=== PATIENT | male | born 1965 | race Caucasian/White ===

== ENCOUNTER 2016-07-29 21:01 | Emergency (ER) | payer OTHER ==
[~2016-07-29] VITALS: Ht 188 cm; Wt 104.3 kg
[~2016-07-29 21:01] MED LIST: CIPR500T PO; OXYC-323 PO
[2016-07-29 21:40] VITALS: BP 134/84
[2016-07-29] MEDS ORDERED: CYCL10TA2 PO (22:47)
[2016-07-29] MEDS ORDERED: NAPR500T8 PO (22:47)
[2016-07-29] MEDS ORDERED: HYDR-971 PO (22:47)
--- NOTE | 2016-07-29 22:47 | PHYS DOC ---
Past Medical History Past Medical History: No Pertinent History Past Surgical History: Other Additional Past Surgical Histo: Left ear, left wrist Alcohol Use: Occasionally Drug Use: None Adult General Chief Complaint Chief Complaint: SHOULDER INJURY HPI HPI Patient is a 51 year old male with no significant medical history who presents today with right shoulder and right anterior rib pain that began when he fell. Patient states he was walking down some steps from his truck when he fell. Patient denies any loss of consciousness. Review of Systems Review of Systems Constitutional: Denies fever or chills [] Eyes: Denies change in visual acuity, redness, or eye pain [] HENT: Denies nasal congestion or sore throat [] Respiratory: Right anterior rib pain Cardiovascular: No additional information not addressed in HPI [] GI: Denies abdominal pain, nausea, vomiting, bloody stools or diarrhea [] : Denies dysuria or hematuria [] Musculoskeletal: Right shoulder pain Integument: Denies rash or skin lesions [] Neurologic: Denies headache, focal weakness or sensory changes [] Endocrine: Denies polyuria or polydipsia [] Current Medications Current Medications Current Medications Medications (Trade) Dose Ordered Sig/Fly Start Time Stop Time Status Last Admin Dose Admin Acetaminophen/ Hydrocodone Bitart (Lortab 5/325) 2 tab 1X ONCE 07/29/16 23:00 07/29/16 23:01 Cyclobenzaprine HCl (Flexeril) 10 mg 1X ONCE 07/29/16 23:00 07/29/16 23:01 Allergies Allergies Allergies Coded Allergies Type Severity Reaction Last Updated Verified Penicillins Allergy Intermediate Hives 11/20/15 Yes Physical Exam Physical Exam Constitutional: Well developed, well nourished, no acute distress, non-toxic appearance. [] HENT: Normocephalic, atraumatic, bilateral external ears normal, oropharynx moist, no oral exudates, nose normal. [] Eyes: PERRLA, EOMI, conjunctiva normal, no discharge. [] Neck: Normal range of motion, no tenderness, supple, no stridor. [] Cardiovascular:Heart rate regular rhythm, no murmur [] Lungs & Thorax: No bruises noted on the ribs bilaterally. Tenderness on palpation of right anterior ribs mid axillary and midclavicular line approximately ribs 4 through 8. Bilateral breath sounds clear to auscultation, Abdomen: Bowel sounds normal, soft, no tenderness, no masses, no pulsatile masses. [] Skin: Warm, dry, no erythema, no rash. [] Back: No tenderness, no CVA tenderness. [] Extremities: Right shoulder with no obvious deformity. Tenderness on palpation of the right shoulder joint. Limited range of motion to the right shoulder especially abduction due to pain. Adequate plantar flexion and dorsiflexion of the right forearm. Adequate radial medial and ulnar sensation to the right forearm. +2 right radial pulse. Cap refill less than 2 seconds the right upper extremity. Neurologic: Alert and oriented X 3, normal motor function, normal sensory function, no focal deficits noted. [] Psychologic: Affect normal, judgement normal, mood normal. [] Current Patient Data Vital Signs Vital Signs Date Time Temp Pulse Resp B/P (MAP) Pulse Ox O2 Delivery O2 Flow Rate FiO2 07/29/16 21:40 98.1 95 16 95 Room Air 98.1 EKG EKG [] Radiology/Procedures Radiology/Procedures [] Course & Med Decision Making Course & Med Decision Making Pertinent Labs and Imaging studies reviewed. (See chart for details) Patient is in the ED with right shoulder pain after falling on it as well as right anterior rib pain. Right shoulder x-rays interpreted by Dr. Jha was negative for any acute findings. Right rib x-rays including PA chest interpreted by Dr. Jha were noted to have fractures of ribs 7 and 8. Patient be discharged with an IS for deep breaths. Provided pain medicines and muscle relaxers. Follow-up with primary care doctor next week. Dragon Disclaimer Dragon Disclaimer This electronic medical record was generated, in whole or in part, using a voice recognition dictation system. Departure Departure Impression: Primary Impression: Right rib fracture Additional Impressions: Fall down steps Contracture, right shoulder Disposition: HOME, SELF-CARE Condition: STABLE Referrals: HENRIQUE CHAMBERS MD (PCP) follow up with your doctor next week Patient Instructions: Contusion, [id number], Fall Prevention and Home Safety , Rib Fracture, [id number] Additional Instructions: You were seen in the ED after falling. You have fractures of ribs 7 and 8. We put you on pain medicine and muscle relaxers. We recommend you take deep breaths using the incentive spirometry 10 times every hour while awake. Consider establishing care with a primary care doctor and follow-up next week. Take the prescribed medicines as needed for pain. Come back to the ED at any time symptoms worsen. Scripts Naproxen (NAPROXEN) 500 Mg Tablet.dr 1 TAB PO BID, #60 TAB 2 Refills Prov: LORRIE LOPEZ APRN 07/29/16 Cyclobenzaprine Hcl (CYCLOBENZAPRINE HCL) 10 Mg Tablet 1 TAB PO TID, #60 TAB Prov: LORRIE LOPEZ APRN 07/29/16 Hydrocodone/Apap 5-325 (NORCO 5-325 TABLET) 1 Each Tablet 1-2 TAB PO Q4-6HRS, #40 TAB Prov: LORRIE LOPEZ APRN 07/29/16 Problem Qualifiers Primary Impression: Right rib fracture Encounter type: initial encounter Rib fracture type: multiple ribs Fracture type: closed Qualified Codes: S22.41XA - Multiple fractures of ribs , right side, initial encounter for closed fracture Additional Impressions: Fall down steps Encounter type: initial encounter Qualified Codes: W10.8XXA - Fall (on) ( from) other stairs and steps, initial encounter LORRIE LOPEZ APRN July 29, 2016 22:47
[2016-07-29] MEDS ORDERED: HYDROcodone/APAP 5/325MG 1 TAB TABLET PO ONE (23:00)
[2016-07-29] MEDS ORDERED: CYCLOBENZAPRINE 10 MG TABLET. PO ONE (23:00)
--- NOTE | 2016-07-30 08:07 | RAD ---
Examination: Frontal view of the chest and right RIBS History: History of fall, right rib pain Comparison: 03/14/2012 Findings: The cardiomediastinal silhouette grossly appears unremarkable. Minimal bibasal lung atelectasis. There is nondisplaced fracture of the right lateral eighth rib. There is minimal cortical irregularity identified in the right lateral sixth, seventh ribs seen best on the oblique view could be nondisplaced fractures. Impression: 1. Nondisplaced fracture of the right lateral eighth rib. Probable nondisplaced fractures of the right lateral sixth, seventh ribs.
--- NOTE | 2016-07-30 08:16 | RAD ---
Examination: 2 views of the right shoulder History: History of fall, pain Comparison: None available Findings: The acromioclavicular joint grossly appears unremarkable. The humeral head is within the glenoid. There is no acute fracture or dislocation identified. Impression: No acute osseous findings
== END 2016-07-29 23:03 | disposition home or self-care (01) ==
LOC: ER 21:01
DX: S22.31XA Fracture of one rib, right side, initial encounter for closed fracture (principal); M24.511 Contracture, right shoulder; Z88.0 Allergy status to penicillin; W10.9XXA Fall (on) (from) unspecified stairs and steps, initial encounter; Y93.89 Activity, other specified; Y99.8 Other external cause status; Y92.89 Other specified places as the place of occurrence of the external cause
CPT/HCPCS: 71101; 73030; 99284

== ENCOUNTER 2018-11-04 07:48 | Emergency (ER) | payer OTHER ==
[~2018-11-04] VITALS: Ht 188 cm; Wt 106.8 kg
[~2018-11-04 07:48] MED LIST changes: +CYCL10TA2 PO; +HYDR-3164 PO; +NAPR500T8 PO; -OXYC-323 PO; +OXYC1TAB15 PO
[2018-11-04 07:50] VITALS: BP 154/92
--- NOTE | 2018-11-04 08:33 | PHYS DOC ---
Past Medical History Past Medical History: No Pertinent History Past Surgical History: Other Additional Past Surgical Histo: Left ear, left wrist Alcohol Use: Heavy Additional Information: drinks 2-6 beers daily Drug Use: None Adult General Chief Complaint Chief Complaint: HAND PROBLEM [facility] Patient is a 53 year old right handed male who presents with complaining of left hand injury. Patient stated he tripped on a piece of metal and had a fall and landed on his left hyperextended hand 5 days ago and since then has had pain in his hand when pushing on his hand muscle. Patient rated his pain for over 5 states he doesn't think he has fracture but because he had metal placement in least wanted to make sure he doesn't have fracture. Review of Systems Review of Systems Constitutional: Denies fever or chills [] Eyes: Denies change in visual acuity, redness, or eye pain [] HENT: Denies nasal congestion or sore throat [] Respiratory: Denies cough or shortness of breath [] Cardiovascular: No additional information not addressed in HPI [] GI: Denies abdominal pain, nausea, vomiting, bloody stools or diarrhea [] : Denies dysuria or hematuria [] Musculoskeletal: Denies back pain, reports joint pain [] Integument: Denies rash or skin lesions [] Neurologic: Denies headache, focal weakness or sensory changes [] Endocrine: Denies polyuria or polydipsia [] All other systems were reviewed and found to be within normal limits, except as documented in this note. Allergies Allergies Allergies Coded Allergies Type Severity Reaction Last Updated Verified Penicillins Allergy Intermediate Hives 11/20/15 Yes Physical Exam Physical Exam Constitutional: Well developed, well nourished, mild distress, non-toxic appearance. [] HENT: Normocephalic, atraumatic. Eyes: PERRLA, EOMI, conjunctiva normal, no discharge. [] Neck: Normal range of motion, no tenderness, supple, no stridor. [] Cardiovascular:Heart rate regular rhythm, no murmur [] Lungs & Thorax: Bilateral breath sounds clear to auscultation [] Extremities: Left wrist and hand without deformity, mild edema and tenderness in muscle without bone tenderness, no neurovascular deficit , no cyanosis, no clubbing, ROM intact, no edema. [] Neurologic: Alert and oriented X 3, no focal deficits noted. [] Psychologic: Affect normal, judgement normal, mood normal. [] Current Patient Data Vital Signs Vital Signs Date Time Temp Pulse Resp B/P (MAP) Pulse Ox O2 Delivery O2 Flow Rate FiO2 11/04/18 07:50 98.0 79 16 154/92 (112) 98 Room Air 98.0 EKG EKG [] Radiology/Procedures Radiology/Procedures [] [address] [place] [address] IMAGING REPORT Signed PATIENT: JULIEN ROBERTO RACCOUNT: [id number] : 1965 LOCATION: ER AGE: 53 SEX: M EXAM STATUS: REG ER ORD. PHYSICIAN: MARAH ZIEGLER MD REASON: pt fell on LT hand, pain on lateral side and palm tenderness. PROCEDURE: HAND LEFT 3V Study: HAND LEFT 3V, WRIST 3V LEFT Indication: Fall onto the left hand. Comparison: 11/20/2015 Findings: Redemonstrated surgical changes of volar plate and screw fixation of the distal radius. The hardware is intact and without loosening. Unchanged persistent visualization of remote fracture clefts at the distal radius with sclerotic margins. Small avulsion fracture seen at the base of the fifth metacarpal. Additional small avulsion fracture along the ulnar aspect of the first metacarpal base. As only seen on the oblique view of the wrist, potential additional small avulsion fracture at the level of the distal carpal row. Remote fracture deformity of the thumb distal and proximal phalanges. Scattered degenerative changes throughout the hand and wrist. Soft tissue swelling at the wrist/proximal hand without retained radiopaque foreign body. Impression: 1. Small avulsion fractures seen at the bases of the first and fifth metacarpals. There may be an additional small avulsion fracture involving one of the carpal bones of the distal row (only seen on the oblique view of the wrist). 2. Intact distal radius ORIF construct with unchanged residual fracture deformity and persistent visualization of remote fracture clefts. Scattered degenerative changes as well as sequela of prior trauma involving the hand and wrist. Electronically signed by: LIO RIVAS MD (11/04/2018 8:34 AM) [facility] Course & Med Decision Making Course & Med Decision Making Pertinent Imaging studies reviewed. (See chart for details) Evaluation of patient in ER showed 53-year-old male patient with history of previous left wrist surgery and ORIF presented with injury to left wrist after a fall. Patient had unremarkable physical exam except for mild tenderness of proximal of metacarpal. X-ray showed an avulsion fraction of proximal of first a nd fifth metacarpal. Patient did not want to have splint and states he had Velcro splint at home. Patient was advised to follow-up with orthopedic physician [place] Disclaimer Madison Disclaimer This electronic medical record was generated, in whole or in part, using a voice recognition dictation system. Departure Departure Impression: Primary Impression: Closed avulsion fracture of shaft of metacarpal bone Disposition: HOME, SELF-CARE (at 0 [phone]) Condition: STABLE Referrals: NO PCP (PCP) MARIELA BRAVO II, MD Patient Instructions: Avulsion Fracture Additional Instructions: Apply ice on the affected area Follow-up with your primary care physician in 3-5 days Return to ER if not getting better Scripts Hydrocodone/Apap 5-325 (NORCO 5-325 TABLET) 1 Each Tablet 1 TAB PO PRN Q6HRS PRN for PAIN, #10 TAB 0 Refills Prov: MARAH ZIEGLER MD 11/04/18 Ibuprofen (IBUPROFEN) 800 Mg Tablet 800 MG PO PRN Q8HRS PRN for INFLAMMATION, #20 TAB Prov: MARAH ZIEGLER MD 11/04/18 Problem Qualifiers Primary Impression: Closed avulsion fracture of shaft of metacarpal bone Encounter type: initial encounter Qualified Codes: S62.329A - Displaced fracture of shaft of unspecified metacarpal bone, initial encounter for closed fracture MARAH ZIEGLER MD Nov 04, 2018 08:33
--- NOTE | 2018-11-04 08:37 | RAD ---
Study: HAND LEFT 3V, WRIST 3V LEFT Indication: Fall onto the left hand. Comparison: 11/20/2015 Findings: Redemonstrated surgical changes of volar plate and screw fixation of the distal radius. The hardware is intact and without loosening. Unchanged persistent visualization of remote fracture clefts at the distal radius with sclerotic margins. Small avulsion fracture seen at the base of the fifth metacarpal. Additional small avulsion fracture along the ulnar aspect of the first metacarpal base. As only seen on the oblique view of the wrist, potential additional small avulsion fracture at the level of the distal carpal row. Remote fracture deformity of the thumb distal and proximal phalanges. Scattered degenerative changes throughout the hand and wrist. Soft tissue swelling at the wrist/proximal hand without retained radiopaque foreign body. Impression: 1. Small avulsion fractures seen at the bases of the first and fifth metacarpals. There may be an additional small avulsion fracture involving one of the carpal bones of the distal row (only seen on the oblique view of the wrist). 2. Intact distal radius ORIF construct with unchanged residual fracture deformity and persistent visualization of remote fracture clefts. Scattered degenerative changes as well as sequela of prior trauma involving the hand and wrist. Electronically signed by: LIO RIVAS MD (11/04/2018 8:34 AM) [facility]
[2018-11-04] MEDS ORDERED: IBUP-1060 PO (08:49)
[2018-11-04] MEDS ORDERED: HYDR-3164 PO (08:49)
== END 2018-11-04 09:36 | disposition home or self-care (01) ==
LOC: ER 07:48
DX: S62.326A Displaced fracture of shaft of fifth metacarpal bone, right hand, initial encounter for closed fracture (principal); S62.241A Displaced fracture of shaft of first metacarpal bone, right hand, initial encounter for closed fracture; F10.20 Alcohol dependence, uncomplicated; Y90.9 Presence of alcohol in blood, level not specified; Z88.0 Allergy status to penicillin; W01.0XXA Fall on same level from slipping, tripping and stumbling without subsequent striking against object, initial encounter; Y93.89 Activity, other specified; Y92.89 Other specified places as the place of occurrence of the external cause; Y99.8 Other external cause status
CPT/HCPCS: 29125; 73110; 73130; 99284

== ENCOUNTER → 2020-11-26 | Outpatient (CLI) | payer OTHER ==
[~2020-11-26] MED LIST changes: -CIPR500T PO; +CIPR500T2 PO; +IBUP-1060 PO
--- NOTE | 2020-11-26 12:18 | KCIC ---
Study: MRI of the right hip without contrast INDICATION: Chronic right hip pain. COMPARISON: No prior MRI. Right hip radiographs 11/03/2020. TECHNIQUE: Multiplanar MR imaging of the right hip performed without the use of intravenous or intra- articular contrast. FINDINGS: Bones/hip: No acute fracture, avascular necrosis or stress reaction at the right hip. No acute osseou s abnormality at the left hip or elsewhere throughout the partially assessed pelvis. Note is made of advanced discogenic arthrosis at L5-S1 with surrounding endplate edema that is not fully characterize d. Small uybxi-xl-dyur imaging of the right hip reveals osteophytic proliferation along the acetabular l ip in addition to small femoral head/neck junction osteophytes. Chronic osseous proliferation at the greater trochanter and at the fovea capitis. Very mild subchondral edema at the superolateral acetabu lum. Labrum/cartilage: Degenerative tearing of the labrum at several locations but most pronounced anterio r/superior. Partial thickness chondrosis without a well delineated full-thickness defect or delaminat ion. Ligamentum teres: Remains intact. Greater trochanteric bursa: Unremarkable. Musculotendinous: No high-grade or full-thickness tendon tear. Mild tendinosis at the gluteus minimus insertion. Within normal limits ischiofemoral space and traversing quadratus femoris. No localized m uscular edema or significant fatty infiltration. Miscellaneous: The volume of hip joint fluid is within normal limits on both the right and left. No m ass effect on the right sciatic nerve bundle. IMPRESSION: 1. Degenerative tearing of the acetabular labrum on the right that is greatest anterior/superior. Ba ckground mild/moderate arthrosis with osteophytosis and partial-thickness chondrosis. No well delinea mayra full-thickness chondral defect or delamination. 2. No acute osseous or soft tissue abnormality. Incompletely characterized advanced discogenic arthr osis at L5-S1 with adjacent endplate edema. 3. Additional chronic observations as above. Electronically signed by: LIO RIVAS MD (11/26/2020 12:16 PM) [facility]
== END ==
LOC: KCIC MRI 07:50
PROVIDERS: ATTEND Orthopaedic Surgery
DX: S73.191A Other sprain of right hip, initial encounter (principal); M16.11 Unilateral primary osteoarthritis, right hip; M76.01 Gluteal tendinitis, right hip; M25.751 Osteophyte, right hip; R60.0 Localized edema; M47.817 Spondylosis without myelopathy or radiculopathy, lumbosacral region; X58.XXXA Exposure to other specified factors, initial encounter; Y93.89 Activity, other specified; Y92.89 Other specified places as the place of occurrence of the external cause; Y99.8 Other external cause status
CPT/HCPCS: 73721

== ENCOUNTER → 2021-01-31 | Outpatient (CLI) | payer OTHER ==
[~2021-01-31] MED LIST changes: +CYCL10TA19 PO; -CYCL10TA2 PO
[2021-01-31 09:31] LABS: ALBUMIN 3.9 g/dL (3.4-5.0); CALCIUM 9.2 mg/dL (8.5-10.1); GFR 77.9; POTASSIUM 4.1 mmol/L (3.5-5.1)
[2021-01-31 10:00] LABS: PROTHROMBIN TIME PATIENT 12.2 SEC (11.7-14.0)
[2021-01-31 10:23] LABS: BASO % 0 % (0-3); EOS # 0.1 x10^3/uL (0.0-0.7); EOS % 1 % (0-3); HEMATOCRIT 43.8 % (39.0-53.0); LYMPH # 1.3 x10^3/uL (1.0-4.8); LYMPH % 22 % (24-48); MEAN CORPUSCULAR HEMOGLOBIN 30 pg (25-35); MEAN CORPUSCULAR HGB CONC 34 g/dL (31-37); MEAN CORPUSCULAR VOLUME 89 fL (79-100); MONO # 0.4 x10^3/uL (0.0-1.1); MONO % 7 % (0-9); NEUT # 4.3 x10^3/uL (1.8-7.7); NEUT % 70 % (31-73); PLATELET COUNT 178 x10^3/uL (140-400); RED BLOOD COUNT 4.94 x10^6/uL (4.30-5.70); WHITE BLOOD COUNT 6.1 x10^3/uL (4.0-11.0)
--- NOTE | 2021-01-31 12:24 | EKG ---
[facility] [address] [place] [address] Test Date: 2021-01-31 Test Time: 12:23:01 Pat Name: JULIEN ROBERTO Department: Room: Gender: Caterers Helper: J : 1965 Requested By: ARMANDO ROONEY Order Number: [id number] Reading MD: Thang Pop MD Measurements Intervals [place] Rate: 70 P: 28 ME: 176 QRS: 28 QRSD: 98 T: 49 QT: 374 QTc: 407 Interpretive Statements SINUS RHYTHM Electronically Signed On 02-01-2021 9:27:32 TOP DYEING MACHINE TENDER by Thang Pop MD
--- NOTE | 2021-01-31 13:20 | RAD ---
EXAM: Chest, 2 views. HISTORY: Tobacco use. Preoperative evaluation. COMPARISON: None. FINDINGS: 2 views of the chest are obtained. There is no infiltrate, pleural effusion or pneumothorax . The heart is normal in size. IMPRESSION: No acute pulmonary finding. Electronically signed by: Marie Moya MD (01/31/2021 1:17 PM) [id number]
== END ==
LOC: SURGPAT 11:55
PROVIDERS: ATTEND Orthopaedic Surgery
DX: Z01.818 Encounter for other preprocedural examination (principal); M16.11 Unilateral primary osteoarthritis, right hip
CPT/HCPCS: 36415; 71046; 80048; 82040; 82306; 83036; 85025; 85610; 85651; 85730; 87641; 93005

== ENCOUNTER → 2021-03-09 | Outpatient (CLI) | payer OTHER ==
[~2021-03-09] MED LIST changes: +FERR325T14 PO; +MELO7.5T29 PO; +METF-658 PO; +OXYC5TAB4 PO
[2021-03-09 13:01] LABS: CALCIUM 9.3 mg/dL (8.5-10.1); CREATININE 0.9 mg/dL (0.7-1.3); GFR 87.9
[2021-03-10 04:13] LABS: HEMOGLOBIN A1C 7.2 % (4.8-5.6)
== END ==
LOC: SURGPAT 12:08
PROVIDERS: ATTEND Orthopaedic Surgery
DX: Z01.812 Encounter for preprocedural laboratory examination (principal); Z20.822 Contact with and (suspected) exposure to COVID-19; M16.11 Unilateral primary osteoarthritis, right hip
CPT/HCPCS: 80048; 83036; 87641; U0003; U0005

== ENCOUNTER 2021-03-14 07:06 | Observation (INO) | payer OTHER ==
[2021-03-09 12:57] VITALS: BP 141/73
[~2021-03-14] VITALS: Ht 182.9 cm; Wt 100.1 kg
[~2021-03-14 07:06] MED LIST changes: +ACETAMINOPHEN 500 MG TABLET PO PRN; +CLINDAMYCIN 900MG PREMIX 50 ML IV PRN; +GABAPENTIN 300 MG CAPSULE. PO PRN; +HYDROmorphone 2 MG/ML VIAL IVP PRN; -MELO7.5T29 PO; +MORPHINE SULFATE 2 MG/ML INJ. IVP PRN; +NS INJ ONE; -OXYC5TAB4 PO; +PROCHLORPERAZINE 10 MG/2 ML VIAL. IVP PRN; +TRANEXAMIC ACID INJ ONE; +TV=62ml MORPHINE 5 MG, KETOROLAC 30 MG, ROPIV, EPI INT ART ONE; +fentaNYL PF VIAL 100 MCG/2 ML VIAL IVP PRN
[2021-03-14] MEDS ORDERED: PROPOFOL 10 MG/ML (20ML) VIAL. IV ONE (07:41)
[2021-03-14] MEDS ORDERED: ONDANSETRON PF 4 MG/2 ML VIAL. ONE (07:42)
[2021-03-14] MEDS ORDERED: DEXAMETHASONE SOD PHOS 4 MG/ML VIAL ONE (07:42)
[2021-03-14] MEDS ORDERED: LIDOCAINE 1% PF 5 ML VIAL. ONE (07:42)
[2021-03-14] MEDS ORDERED: fentaNYL PF VIAL 100 MCG/2 ML VIAL ONE (07:42)
[2021-03-14 07:46] VITALS: BP 110/66
[2021-03-14] MEDS ORDERED: VANCOMYCIN 1 GM VIAL. ONE (08:04)
[2021-03-14] MEDS ORDERED: TRANEXAMIC ACID in NS IVPB 100 ML ONE (08:04)
[2021-03-14] MEDS ORDERED: SUGAMMADEX SODIUM 200 MG/2 ML VIAL. IVP ONE (08:15)
[2021-03-14] MEDS: IV RINGERS,LACTATED 1000ML 1,000 ML IV SCH ×2 (08:25→10:56)
[2021-03-14] MEDS ORDERED: 0.9 % SODIUM CHLORIDE 10 ML DISP.SYRIN. IV PRN (08:45)
[2021-03-14] MEDS ORDERED: diphenhydrAMINE 50 MG/ML VIAL IVP PRN (08:45)
[2021-03-14] MEDS ORDERED: ZOLPIDEM 5 MG TABLET. PO PRN (08:45)
[2021-03-14] MEDS ORDERED: fentaNYL PF VIAL 100 MCG/2 ML VIAL IVP PRN (08:45)
[2021-03-14] MEDS ORDERED: CALCIUM CARBONATE 500 MG TAB.CHEW PO PRN (08:45)
[2021-03-14] MEDS ORDERED: MORPHINE SULFATE 2 MG/ML INJ. IVP PRN (08:45)
[2021-03-14] MEDS ORDERED: HYDROmorphone 2 MG/ML VIAL ONE (09:20)
[2021-03-14] MEDS ORDERED: ASPIRIN 325 MG TABLET PO ONE (09:30)
[2021-03-14] MEDS ORDERED: ePHEDrine PF IN SALINE 50 MG/10 ML SYRINGE. IV ONE (09:32)
[2021-03-14] MEDS ORDERED: PHENYLEPHRINE 10 MG/ML VIAL. ONE (09:32)
--- NOTE | 2021-03-14 10:00 | PDOC4 ---
OPERATIVE NOTE Date: Date: Mar 14, 2021 Pre-Op Diagnosis: Degenerative joint disease right hip AVN Post-Op Diagnosis: Same Procedure Performed: Right total hip arthroplasty Surgeon: Donita Anesthesia Type: General Blood Loss: 250 cc Specimans Obtained: Femoral head Findings: See dictation Complications: None ARMANDO ROONEY Jr., DO Mar 14, 2021 10:00
--- NOTE | 2021-03-14 10:20 | OP ---
DATE OF SURGERY: 03/14/2021 PREOPERATIVE DIAGNOSIS: Right hip degenerative joint disease. POSTOPERATIVE DIAGNOSIS: Right hip degenerative joint disease. PROCEDURE: Right total hip arthroplasty. SURGEON: Bhavesh Duckworth Jr, DO HAT LACER: Jeff Ochoa. ANESTHESIA: General. COMPLICATIONS: None. ESTIMATED BLOOD LOSS: 250 mL DESCRIPTION OF PROCEDURE: The patient was taken to the operative suite, given a general anesthetic, placed in the lateral decubitus position with his affected hip upright. After this was prepped and draped in a sterile fashion. Incision was made through skin and subcutaneous tissues down through the iliotibial band, which was split in line with the skin incision. This was retracted anteriorly and posteriorly and the portion of the gluteus medius and minimus were removed and retracted. The capsule was then opened up in an H fashion. The hip was subsequently dislocated and a fingerbreadth above the lesser trochanter, the cut was made for the femoral neck. After this was done, this was measured and noted to be 50. Therefore, reaming began at size 48 of the acetabulum. After the labral tissue was removed from the periphery, which was torn and then the reaming began at size 48 and continued up to 54. This was noted to be nice and flush and a very good bleeding amount of tissue. Therefore, this was then impacted. After the cup was impacted, this was held with two 25 mm screws in the depths of the acetabular component. The elevated rim was then impacted. Following this, the hip was placed in the side bag and then the broach for the paper box cutter was used to open up the femoral canal. The IM guide was then placed and removed. Broaching began at size 0 and continued up to size 5. A size 5 was noted to be the most appropriate. Therefore, this was trialled, taken through extremes in range of motion with excellent stability. This was subsequently dislocated. Then, the actual size 5 was placed and this was trialed again and -2.5 was noted to be the most appropriate size. Therefore, this was again subsequently taken through all ranges of motion, forcibly dislocated and all the trials were then removed. The -2.5 ceramic femoral head was then affixed to the femoral component and then relocated. This was taken through range of motion with good positioning. There was excellent stability noted in all planes. Therefore, the capsule was reapproximated. The gluteus medius and minimus were reapproximated to their original sites. The iliotibial band was then closed with a Stratafix running suture. The superficial tissues and skin was reapproximated. Sterile dressing was applied. The patient was then taken from the operative bed to the postoperative bed, taken to the PACU in stable condition. GEORGE DR: Alanis TID: [id number]
--- NOTE | 2021-03-14 11:10 | RAD ---
Single AP plain film of the pelvis was performed. History: Reason: post op / Spl. Instructions: / History: Comparison: None. Patient postop right hip arthroplasty. No evidence of immediate hardware failure or loosening. There is good alignment of the prostheses. No other fracture subluxation dislocation. Electronically signed by: Christopher Woods MD (03/14/2021 11:08 AM) [id number]
--- NOTE | 2021-03-14 11:12 | HP ---
DATE OF SERVICE: 03/14/2021 ADMIT DATE: 03/14/2021 PREOP HISTORY AND PHYSICAL REASON FOR HISTORY AND PHYSICAL: Preoperative history and physical for right hip. BRIEF HISTORY: The patient is a 55-year-old male who has significant pain in the right hip with significant loss of motion as well as significant pain. He was previously evaluated by other orthopedic surgeons in our office and was set up for a total hip arthroplasty. However, this patient's have left practice, therefore he was here for evaluation initially in December. We discussed treatment options at that point since he had failed all conservative therapies. He had previously undergone physical therapy, rest, modification of activities, anti-inflammatories. Nothing helped his symptoms. Medical history is noted. MEDICATIONS: Include metformin and iron. MEDICATION ALLERGIES: PENICILLIN. FAMILY HISTORY: Remarkable for [place], CVA, renal failure and breast cancer. PHYSICAL EXAMINATION: Today, patient is 74 inches tall, 230 pounds. He has pain with range of motion. 5 degrees of internal rotation, 20 degrees of external rotation with abduction of 35, significant pain throughout the arc of motion. He can flex up to 90 without any lack of full extension, however, has an antalgic gait secondary to decreased stance phase. DIAGNOSTIC DATA: X-ray shows some early degenerative joint disease of the right hip compared to the left. IMPRESSION: Osteoarthrosis, right hip. PLAN: At this time, he has failed all conservative therapies at this point and was previously scheduled and now scheduled for right total hip arthroplasty. He is well aware of the risks, complications as well as benefits and expectations of surgery, postoperative protocol and followup. ZACK/SANDRA DR: Alanis TID: [id number]
[2021-03-14] MEDS: ONDANSETRON PF 4 MG/2 ML VIAL. IVP SCH ×2 (12:00→17:18)
[2021-03-14] MEDS ORDERED: DEXTROSE 50% 25 GM / 50ML DISP.SYRIN. IV PRN ×2 (12:00→15:45)
[2021-03-14] MEDS ORDERED: METOCLOPRAMIDE HCL 10 MG/2 ML VIAL. IVP PRN (12:00)
[2021-03-14] MEDS: ONDANSETRON ODT 4 MG TAB.RAPDIS. PO SCH ×2 (12:00→18:00)
[2021-03-14] MEDS ORDERED: oxyCODONE IR 5 MG TABLET PO PRN (12:00)
[2021-03-14 14:00] VITALS: BP 100/56
[2021-03-14 15:00] VITALS: BP_SYST 86; BP_SYST 89; BP_DIAS 46; BP_DIAS 54
[2021-03-14] MEDS: IV NORMAL SALINE 1000ML BAG 1,000 ML IV SCH (15:00)
--- NOTE | 2021-03-14 15:37 | PDOC1 ---
History and Physical Date of Service: DOS: DATE: 03/14/21 TIME: 15:32 Chief Complaint: Chief Complain: Right hip pain History of Present Illness: HPI: 55-year-old male with past medical history of diabetes mellitus and alcohol use who is admitted for surgery for his right hip pain. He is evaluated by Dr. Duckworth on outpatient basis and set up for planned total hip arthroplasty. Apparently, patient had previously undergone physical therapy, rest, modification of activities and anti-inflammatories but all conservative m anagement failed. Patient is now status post right total hip arthroplasty. Currently denies any fevers, nausea vomiting, chest pain, abdominal pain. Past Medical/Surgical History: PMH/PSH: Diabetes mellitus Allergies: Allergies: Coded Allergies: Penicillins (Verified Allergy, Intermediate, Hives, 03/14/21) Family History: Family History: Positive for SC, CVA, renal failure and breast cancer Social History: Social History: Drinks about 6-8 beers per day Current Medications: Current Medications Current Medications Fentanyl Citrate (Fentanyl 2ml Vial) 25 mcg PRN Q5MIN PRN IVP MILD PAIN 1-3; Start 03/14/21 at 06:00; Stop 03/14/21 at 18:00 Fentanyl Citrate (Fentanyl 2ml Vial) 50 mcg PRN Q5MIN PRN IVP MODERATE PAIN 4- 6; Start 03/14/21 at 06:00; Stop 03/14/21 at 18:00 Morphine Sulfate (Morphine Sulfate) 1 mg PRN Q10MIN PRN IVP SEVERE PAIN 7-10; Start 03/14/21 at 06:00; Stop 03/14/21 at 20:00 Ringer's Solution 1,000 ml @ 30 mls/hr Q24H IV Last administered on 03/14/21at 10:56; Start 03/14/21 at 06:00; Stop 03/14/21 at 17:59 Hydromorphone HCl (Dilaudid) 0.5 mg PRN Q10MIN PRN IVP SEVERE PAIN 7-10, 2nd CHOICE; Start 03/14/21 at 06:00; Stop 03/14/21 at 18:00 Prochlorperazine Edisylate (Compazine) 5 mg PACU PRN PRN IVP NAUSEA, MRX1; Start 03/14/21 at 06:00; Stop 03/14/21 at 18:00 Acetaminophen (Tylenol) 1,000 mg 1X PREOP PRN PO PRIOR TO PROCEDURE Last administered on 03/14/21at 08:28; Start 03/13/21 at 14:30; Stop 03/14/21 at 12:00; Status DC Clindamycin Phosphate 50 ml @ 100 mls/hr 1X PREOP PRN IV PRIOR TO PROCEDURE; Start 03/14/21 at 06:00; Stop 03/14/21 at 10:00; Status DC Morphine Sulfate 5 mg/Ketorolac Tromethamine 30 mg/Ropivacaine 60 ml/Epinephrine HCl 0.5 mg/ Miscellaneous 63 ml @ 63 mls/hr 1X PERIOP ONCE INT ART Last administered on 03/14/21at 10:02; Start 03/14/21 at 06:00; Stop 03/14/21 at 06:59; Status DC Tranexamic Acid 50 ml @ 50 mls/hr 1X PERIOP ONCE INJ Last administered on 03/14/21at 06:00; Start 03/14/21 at 06:00; Stop 03/14/21 at 06:59; Status DC Gabapentin (Neurontin) 600 mg 1X PRN PRN PO PRIOR TO PROCEDURE Last administere d on 03/14/21at 08:28; Start 03/14/21 at 06:00; Stop 03/14/21 at 12:00; Status DC Propofol (Diprivan) 200 mg STK-MED ONCE IV ; Start 03/14/21 at 07:41; Stop 03/14/21 at 07:42; Status DC Ondansetron HCl (Zofran) 4 mg STK-MED ONCE .ROUTE ; Start 03/14/21 at 07:42; Stop 03/14/21 at 07:42; Status DC Fentanyl Citrate (Fentanyl 2ml Vial) 100 mcg STK-MED ONCE .ROUTE ; Start 02/17 10/06 at 07:42; Stop 03/14/21 at 07:42; Status DC Lidocaine HCl (Xylocaine-Mpf 1% 5ml Vial) 5 ml STK-MED ONCE .ROUTE ; Start 1 05/15/20 at 07:42; Stop 03/14/21 at 07:42; Status DC Dexamethasone Sodium Phosphate (Decadron) 4 mg STK-MED ONCE .ROUTE ; Start 03/14/21 at 07:42; Stop 03/14/21 at 07:42; Status DC Tranexamic Acid 100 ml @ As Directed STK-MED ONCE .ROUTE Last administered on 03/14/21at 10:01; Start 03/14/21 at 08:04; Stop 03/14/21 at 08:04; Status DC Vancomycin HCl (Vancomycin) 1 gm STK-MED ONCE .ROUTE ; Start 03/14/21 at 08:04; Stop 03/14/21 at 08:04; Status DC Sugammadex Sodium (Bridion) 200 mg 1X ONCE IVP ; Start 03/14/21 at 08:15; Stop 03/14/21 at 08:16; Status DC Morphine Sulfate (Morphine Sulfate) 2 mg PRN Q1HR PRN IVP PAIN; Start 03/14/21 at 08:45 Fentanyl Citrate (Fentanyl 2ml Vial) 25 mcg PRN Q1HR PRN IVP PAIN, 2nd CHOICE; Start 03/14/21 at 08:45 Diphenhydramine HCl (Benadryl) 25 mg PRN Q6HRS PRN IVP ITCHING; Start 03/14/21 at 08:45 Multivitamins (Thera M Plus) 1 tab DAILY PO ; Start 03/15/21 at 09:00 Senna/Docusate Sodium (Senna Plus) 1 tab DAILY PO ; Start 03/15/21 at 09:00 Ferrous Sulfate (Feosol) 325 mg BIDWMEALS PO ; Start 03/14/21 at 17:00 Sodium Chloride 1,000 ml @ 40 mls/hr Q24H IV ; Start 03/14/21 at 15:00 Clindamycin Phosphate 50 ml @ 100 mls/hr Q6H IV ; Start 03/14/21 at 14:00; Stop 03/15/21 at 02:29 Metoclopramide HCl (Reglan Vial) 10 mg PRN Q4HRS PRN IVP NAUSEA/VOMITING, 3rd CHOICE; Start 03/14/21 at 12:00 Magnesium Hydroxide (Milk Of Magnesia) 2,400 mg 1X PRN PRN PO CONSTIPATION; Start 03/15/21 at 06:00; Stop 03/16/21 at 05:59 Bisacodyl (Dulcolax Supp) 10 mg 1X PRN PRN MO CONSTIPATION; Start 03/15/21 at 16:00; Stop 03/16/21 at 15:59 Zolpidem Tartrate (Ambien) 5 mg PRN QHS PRN PO INSOMNIA, MAY REPEAT IN 1HR; Start 03/14/21 at 08:45 Calcium Carbonate/ Glycine (Tums) 500 mg PRN QID PRN PO INDIGESTION; Start 03/14/21 at 08:45 Ketorolac Tromethamine 30 mg/Bupivacaine HCl 20 ml/ Epinephrine HCl 0.5 mg/ Miscellaneous 43 ml @ 258 mls/hr Q12H INT ART ; Start 03/14/21 at 18:00; Stop 03/15/21 at 06:09; Status Cancel Sodium Chloride (Normal Saline Flush) 10 ml QSHIFT PRN IV AFTER MEDS AND BLOOD DRAWS; Start 03/14/21 at 08:45 Acetaminophen (Tylenol) 1,000 mg Q6H PO ; Start 03/15/21 at 12:00 Meloxicam (Mobic) 15 mg DAILY PO ; Start 03/15/21 at 09:00 Gabapentin (Neurontin) 100 mg Q12H PO ; Start 03/15/21 at 06:00 Ondansetron HCl (Zofran) 4 mg Q6HRS IVP ; Start 03/14/21 at 12:00; Stop 03/15/21 at 06:01 Ondansetron HCl (Zofran Odt) 4 mg Q6HRS PO ; Start 03/14/21 at 12:00; Stop 03/15/21 at 06:01 Ondansetron HCl (Zofran) 4 mg PRN Q6HRS PRN IVP Nausea/vomiting, 1st choice; Start 03/15/21 at 12:00 Ondansetron HCl (Zofran Odt) 4 mg PRN Q6HRS PRN PO Nausea/vomiting, 1st choice; Start 03/15/21 at 12:00 Oxycodone HCl (Roxicodone) 5 mg PRN Q4HRS PRN PO Pain score 4-6; Start 03/14/21 at 12:00 Oxycodone HCl (Roxicodone) 10 mg PRN Q4HRS PRN PO Pain score 7-10; Start 03/14/21 at 12:00 Dextrose (Dextrose 50%-Water Syringe) 12.5 gm PRN Q15MIN PRN IV SEE COMMENTS; Start 03/14/21 at 12:00 Aspirin (Nicholas Aspirin) 325 mg 1X ONCE PO ; Start 03/14/21 at 09:30; Stop 03/14/21 at 09:31; Status DC Hydromorphone HCl (Dilaudid) 2 mg STK-MED ONCE .ROUTE ; Start 03/14/21 at 09:20; Stop 03/14/21 at 09:20; Status DC Ephedrine Sulfate (ePHEDrine PF IN SALINE SYRINGE) 50 mg STK-MED ONCE IV ; Start 03/14/21 at 09:32; Stop 03/14/21 at 09:33; Status DC Phenylephrine HCl (Db-Synephrine Inj) 10 mg STK-MED ONCE .ROUTE ; Start 03/14/21 at 09:32; Stop 03/14/21 at 09:33; Status DC Active Scripts Active Reported Ferrous Sulfate 325 Mg Tablet 325 Mg PO DAILY Metformin Hcl Er (Metformin Hcl) 500 Mg Tab.er.24h 500 Mg PO BIDWMEALS ROS: Review of Systems Review of System REVIEW OF SYSTEMS: GENERAL: Denies weakness SKIN: No bruising, hair changes or rashes. EYES: No blurred, double or loss of vision. NOSE AND THROAT: No history of nosebleeds, hoarseness or sore throat. HEART: No history of palpitations, chest pain or shortness of breath on exertion. LUNGS: Denies cough, hemoptysis, wheezing or shortness of breath. GASTROINTESTINAL: Denies changes in appetite, nausea, vomiting, diarrhea or constipation. GENITOURINARY: No history of frequency, urgency, hesitancy or nocturia. NEUROLOGIC: Denies history of numbness, tingling, or tremor. PSYCHIATRIC: No history of panic, anxiety or depression. ENDOCRINE: No history of heat or cold intolerance, polyuria or polydipsia. EXTREMITIES: Right hip pain Physical Exam: Vital Signs: Vital Signs Date Time Temp Pulse Resp B/P (MAP) Pulse Ox O2 Delivery O2 Flow Rate FiO2 03/14/21 13:50 92 20 95/65 96 Room Air 03/14/21 13:05 98.0 98.0 03/14/21 10:35 10 Physcial Exam: GEN: No apparent distress. Alert and oriented HEENT: Normal cephalic, atraumatic, external auditory canals are patent EYES: Extraocular muscles are intact, pupil are equally round and reactive to light and accommodation MUSCULOSKELETAL: Well developed , well nourished, good range of motion ENDOCRINE: No thyromegaly was palpated LYMPHATICS: No cervical chain or axillary nodes were noted HEMATOPOIETIC: No bruising NECK: Supple, no JVD, no thyromegaly was noted LUNGS: Clear to auscultation in all lung damico without rhonchi or wheezing HEART: RRR, S!, S2 present. Peripheral pulses intact, no obvious murmurs noted ABDOMEN: Soft, nontender. Positive bowel sounds, no organomegaly, normal bowel sounds EXTREMITIES: Without clubbing, cyanosis, or edema. Pedal pulses intact. Negative Homans sign NEUROLOGIC: Normal speech and tone. A&O x 3, moves all extremities, no obvious focal deficits PSYCHIATRIC: Normal affect, normal mood. Stable SKIN: No ulcerations or rashes, good skin turgor, no jaundice VASCULAR: Good capillary refill, neurovascular bundle appears to be intact Labs: Labs: Laboratory Tests Test 03/14/21 07:59 03/14/21 10:27 Glucose (Fingerstick) 108 mg/dL (70-99) 174 mg/dL (70-99) Laboratory Tests Test 03/14/21 07:59 03/14/21 10:27 Glucose (Fingerstick) 108 mg/dL (70-99) 174 mg/dL (70-99) Images: Images Preop x-ray images showing osteoarthritis of the right hip PROCEDURE: PELVIS Single AP plain film of the pelvis was performed. History: Reason: post op / Spl. Instructions: / History: Comparison: None. Patient postop right hip arthroplasty. No evidence of immediate hardware failure or loosening. There is good alignment of the prostheses. No other fracture subluxation dislocation. Assessment/Plan Assessment/Plan Osteoarthritis of the right hip status post right total hip arthroplasty 03/14/2021 History of diabetes mellitus type 2, fairly well controlled with hemoglobin A1c of 7.2 History of alcohol use Admit to hospitalist service for further management IV n.p.o. pain control Pending PT OT evaluation R ISS and Accu-Cheks Will defer to orthopedics for DVT prophylaxis ADA diet CODE STATUS full Discussed with RN and SW Disposition inpatient management as above DPOA: Justifications for Admission Other Justification ROBYN THOMPSON MD Mar 14, 2021 15:36
[2021-03-14] MEDS: INSULIN LISPRO 300 UNITS/3 ML VIAL. SQ SCH (17:00)
[2021-03-14] MEDS: metFORMIN XR 500 MG TAB.ER.24H PO SCH (17:18)
[2021-03-14] MEDS: CLINDAMYCIN 900MG PREMIX 50 ML IV SCH ×2 (17:18→22:38)
[2021-03-14] MEDS: FERROUS SULFATE 325 MG TABLET. PO SCH (17:18)
[2021-03-14] MEDS ORDERED: KETOROLAC 30MG VIAL 30 MG, BUPIVACAINE MPF 0.25% 20 ML, EPINEPHrine 0.5 MG in TOTAL VOL... INT ART SCH (18:00)
[2021-03-14] MEDS: oxyCODONE IR 5 MG TABLET PO PRN ×2 (18:50→22:37)
[2021-03-14 19:00] VITALS: BP 101/55
[2021-03-14] MEDS ORDERED: chlordiazePOXIDE HCL 25 MG CAPSULE PO PRN (22:00)
[2021-03-14 23:35] VITALS: BP 108/61
[2021-03-15] MEDS: oxyCODONE IR 5 MG TABLET PO PRN ×4 (03:00→21:47)
[2021-03-15 03:27] VITALS: BP 117/66
[2021-03-15] MEDS: CLINDAMYCIN 900MG PREMIX 50 ML IV SCH (03:47)
[2021-03-15] MEDS: ONDANSETRON PF 4 MG/2 ML VIAL. IVP SCH ×2 (05:47)
[2021-03-15] MEDS: ONDANSETRON ODT 4 MG TAB.RAPDIS. PO SCH ×2 (05:47)
[2021-03-15] MEDS: GABAPENTIN 100 MG CAPSULE. PO SCH ×2 (05:47→17:28)
[2021-03-15] MEDS ORDERED: MAGNESIUM HYDROXIDE 2,400 MG/30 ML ORAL.SUSP. PO PRN (06:00)
[2021-03-15 06:42] LABS: HEMATOCRIT 31.9 % (39.0-53.0); HEMOGLOBIN 10.6 g/dL (13.0-17.5)
[2021-03-15 07:00] VITALS: BP 116/58
[2021-03-15] MEDS: INSULIN LISPRO 300 UNITS/3 ML VIAL. SQ SCH ×3 (08:00→17:00)
[2021-03-15] MEDS: FERROUS SULFATE 325 MG TABLET. PO SCH ×2 (08:23→17:00)
[2021-03-15] MEDS: SENNOSIDES/DOCUSATE 8.6/50MG TABLET. PO SCH (08:23)
[2021-03-15] MEDS: MELOXICAM 7.5 MG TABLET PO SCH (08:23)
[2021-03-15] MEDS: metFORMIN XR 500 MG TAB.ER.24H PO SCH ×2 (08:23→17:29)
[2021-03-15] MEDS: MULTIVITAMIN with MINERAL TABLET. PO SCH (08:23)
[2021-03-15] MEDS ORDERED: ONDANSETRON ODT 4 MG TAB.RAPDIS. PO PRN (12:00)
[2021-03-15] MEDS ORDERED: ONDANSETRON PF 4 MG/2 ML VIAL. IVP PRN (12:00)
--- NOTE | 2021-03-15 12:11 | NUR ---
SW following. Discussed with RN, pt from home, room air, cardiac diet. Therapy recommending home with assistance or home health. Pt had surgery 03/14/21. RN anticipates possible discharge home tomorrow. SW will continue to follow.
[2021-03-15] MEDS: ACETAMINOPHEN 500 MG TABLET PO SCH ×2 (12:32→17:29)
[2021-03-15] MEDS: IV NORMAL SALINE 1000ML BAG 1,000 ML IV SCH (14:48)
[2021-03-15] MEDS ORDERED: BISACODYL 10 MG SUPP.RECT. PR PRN (16:00)
[2021-03-15] MEDS: ASPIRIN 325 MG TABLET PO SCH (17:29)
--- NOTE | 2021-03-15 18:15 | PATHOLOGY ---
[facility] Accession Number: [id number] . 01 Material submitted: . femur - RIGHT FEMORAL HEAD. Modifiers: right, head . 01 Clinical history: . AVN TOTAL RIGHT HIP . 02 Diagnosis: Femoral head, right total hip: - Degenerative arthritis. (LORETTAM:marcell; 03/15/2021) MBR 03/15/2021 1455 Local . 02 Electronically signed: . Neville Hernandez MD, Pathologist NPI- [id number] . 01 Gross description: . The specimen is received in formalin, labeled "Selina Forrest, right femoral head". Received is a femoral head with attached femoral neck measuring 4.8 x 4.7 x 4.8 cm in greatest dimensions. The articular surface is light ac-yellow to dark ac, smooth to roughened, and with signs of eburnation. Sectioning reveals light ac-yellow to dark ac and focally hemorrhagic cut surfaces with no grossly distinct nodules or lesions. The specimen is submitted representatively in cassette A1, following decalcification.([facility]; 03/14/2021) [facility] 03/15/20215 Local . 02 Pathologist provided ICD-10: M16.11 . 02 CPT . 717823, [id number] Specimen Comment: A courtesy copy of this report has been sent to [phone], [phone] Specimen Comment: [id number] Specimen Comment: Report sent to / DR GALLEGOS Specimen Comment: A duplicate report has been generated due to demographic updates. Performed at: [address], [place], [place] [id number] MD Ronald Murrell MD Phone: [phone] Performed at: 02 [facility] [address] [place], [place] [id number] MD Neville Hernandez MD Phone: [phone]
--- NOTE | 2021-03-15 18:55 | PDOC ---
[facility] PROGRESS NOTE Date of Service DOS: DATE: 03/15/21 TIME: 18:53 Chief Complaint Chief Complaint Osteoarthritis of the right hip status post right total hip arthroplasty 03/14/2021 History of diabetes mellitus type 2, fairly well controlled with hemoglobin A1c of 7.2 History of alcohol use Admit to hospitalist service for further management IV n.p.o. pain control Pending PT OT evaluation R ISS and Accu-Cheks Will defer to orthopedics for DVT prophylaxis ADA diet CODE STATUS full Discussed with RN and SW Disposition inpatient management as above DPOA: History of Present Illness History of Present Illness 03/15 Patient evaluated examined at bedside. Resting in bed no major complaints. PT OT. Control sugars. Otherwise continue current. Vitals/I&O Vitals/I&O: Vital Signs Date Time Temp Pulse Resp B/P (MAP) Pulse Ox O2 Delivery O2 Flow Rate FiO2 03/15/21 15:15 Room Air 03/15/21 07:00 97.8 82 18 116/58 (77) 96 97.8 03/15/21 03:00 10.0 I & O 03/14/21 03/14/21 03/15/21 15:00 23:00 07:00 Intake Total 2200 ml 1300 ml Output Total 250 ml 1300 ml Balance 1950 ml 0 ml Physical Exam General: Alert, Oriented X3, Cooperative Heart: Regular rate Lungs: Clear Abdomen: Normal bowel sounds, Soft Extremities: No edema, Normal pulses Skin: No significant lesion Labs Labs: Laboratory Tests Test 03/14/21 21:24 03/15/21 06:20 03/15/21 08:20 03/15/21 11:27 Glucose (Fingerstick) 188 mg/dL (70-99) 108 mg/dL (70-99) 177 mg/dL (70-99) Hemoglobin 10.6 g/dL (13.0-17.5) Hematocrit 31.9 % (39.0-53.0) Mean Corpuscular Hemoglobin Concent 33 g/dL (31-37) Test 03/15/21 16:42 Glucose (Fingerstick) 100 mg/dL (70-99) Comment Review of Relevant I have reviewed the following items natasha (where applicable) has been applied. Medications: Current Medications Medications (Trade) Dose Ordered Sig/Fly Route PRN Reason Start Time Stop Time Status Last Admin Dose Admin Multivitamins (Thera M Plus) 1 tab DAILY PO 03/15/21 09:00 03/15/21 08:23 Senna/Docusate Sodium (Senna Plus) 1 tab DAILY PO 03/15/21 09:00 03/15/21 08:23 Acetaminophen (Tylenol) 1,000 mg Q6H PO 03/15/21 12:00 03/15/21 17:29 Meloxicam (Mobic) 15 mg DAILY PO 03/15/21 09:00 03/15/21 08:23 Gabapentin (Neurontin) 100 mg Q12H PO 03/15/21 06:00 03/15/21 17:28 Aspirin (Nicholas Aspirin) 325 mg DAILYWBKFT PO 03/15/21 16:30 03/15/21 17:29 Justifications for Admission Other Justification DIONY VELOZ MD Mar 15, 2021 18:55
[2021-03-15 19:30] VITALS: BP 102/55
[2021-03-15 23:34] VITALS: BP 105/66
[2021-03-16] MEDS: ACETAMINOPHEN 500 MG TABLET PO SCH ×3 (00:46→12:57)
[2021-03-16 03:36] VITALS: BP 103/64
[2021-03-16] MEDS: oxyCODONE IR 5 MG TABLET PO PRN ×3 (04:54→15:26)
[2021-03-16 05:22] LABS: HEMOGLOBIN 10.5 g/dL (13.0-17.5)
[2021-03-16] MEDS: GABAPENTIN 100 MG CAPSULE. PO SCH (06:00)
[2021-03-16 07:15] VITALS: BP 92/52
[2021-03-16] MEDS: SENNOSIDES/DOCUSATE 8.6/50MG TABLET. PO SCH (07:53)
[2021-03-16] MEDS: MULTIVITAMIN with MINERAL TABLET. PO SCH (07:53)
[2021-03-16] MEDS: metFORMIN XR 500 MG TAB.ER.24H PO SCH (07:53)
[2021-03-16] MEDS: ASPIRIN 325 MG TABLET PO SCH (07:53)
[2021-03-16] MEDS: MELOXICAM 7.5 MG TABLET PO SCH (07:53)
[2021-03-16] MEDS: INSULIN LISPRO 300 UNITS/3 ML VIAL. SQ SCH ×2 (07:54→12:00)
[2021-03-16] MEDS: FERROUS SULFATE 325 MG TABLET. PO SCH (07:55)
[2021-03-16] MEDS ORDERED: MELO7.5T29 PO (14:52)
[2021-03-16] MEDS ORDERED: OXYC5TAB4 PO (14:52)
[2021-03-16] MEDS: IV NORMAL SALINE 1000ML BAG 1,000 ML IV SCH (15:00)
[2021-03-16 15:07] VITALS: BP 99/62
--- NOTE | 2021-03-16 15:13 | NUR ---
Discharge instructions given. Answered questions and concerns. Verbalized understanding. Waiting for walker. Cont. monitor.
--- NOTE | 2021-03-16 15:45 | NUR ---
Discharge home accompanied by daughter. Escorted out by w/c.
--- NOTE | 2021-03-16 15:52 | SNU/HH DC ---
DISCHARGE WITH HOME HEALTH DISCHARGE INFORMATION: Discharge Date: Mar 16, 2021 Condition on Discharge: Stable CODE STATUS: Code Status: Full HOME HEALTH: Face to Face: I certify this patient is under my care and that I, or a nurse practitioner or [facility] assistant working with me, had a face to face encounter that meets the physician face to face encounter requirements with this patient on []. RN For Eval/Treatment: Yes Physical Therapy For: Evalulation/Treatment Pt Meets Homebound Status: Extreme weakness w/ amb., Fatigue w/ amb., Limited distance walking POST DISCHARGE ORDERS: Activity Instructions for Disc: Activity as tolerated, Progressive ambulation Weight Bearing Status after Di: No restrictions, As tolerated Bathing Instructions: Shower-keep dressing dry DIET AFTER DISCHARGE: Regular Wound/Incision Care: Ice to area for comfort, Keep wound elevated, Do not change dressing CHECKS AFTER DISCHARGE: Checks after discharge: Check blood press - daily, Check your Temp as needed FOLLOW-UP: Follow Up With: Dr. Gonzalez 10-14 days [phone] TREATMENT/EQUIPMENT ORDERS: Adaptive Equipment Issued: Walker CERTIFICATION STATEMENT: Certification Statement: Certification Statement: Based on the above finding, I certify that this patient is confined to the home and needs intermittent senior living care, physical therapy and/or speech therapy, or continues to need occupational therapy.~ This patient is under my care, and I have initiated the establishment of the plan of care.~ This patient will be followed by myself or a community physician who will periodically review the plan of care. Home Meds Active Scripts Meloxicam (MELOXICAM) 7.5 Mg Tablet, 15 MG PO DAILY for pain for 5 Days, #10 TAB Prov:DIONY VELOZ MD 03/16/21 Oxycodone Hcl (OXYCODONE HCL IMMED.RELEASE ) 5 Mg Tablet, 10 MG PO PRN Q4HRS PRN for PAIN for 10 Days, #30 TAB Prov:DIONY VELOZ MD 03/16/21 Reported Medications Ferrous Sulfate (FERROUS SULFATE) 325 Mg Tablet, 325 MG PO DAILY for , TAB 03/09/21 Metformin Hcl (METFORMIN HCL ER) 500 Mg Tab.er.24h, 500 MG PO BIDWMEALS for dm, TAB 03/09/21 DIONY VELOZ MD Mar 16, 2021 15:51
[2021-03-17] MEDS ORDERED: OXYC5TAB88 PO (12:51)
== END 2021-03-16 15:45 | disposition home or self-care (01) ==
LOC: SURG 07:06 → 4 NORTH 08:32
PROVIDERS: ADMIT Internal Medicine; ATTEND Internal Medicine
DX: M16.11 Unilateral primary osteoarthritis, right hip (principal); Z20.822 Contact with and (suspected) exposure to COVID-19; E11.9 Type 2 diabetes mellitus without complications; Z96.649 Presence of unspecified artificial hip joint; Z79.899 Other long term (current) drug therapy; Z98.890 Other specified postprocedural states; Z72.89 Other problems related to lifestyle; Z79.84 Long term (current) use of oral hypoglycemic drugs
CPT/HCPCS: 27130; 36415; 72170; 82962; 85014; 85018; 86850; 86900; 86901; 88304; 88311; 96365; 96366; 96372; 96375; 97110; 97116; 97162; 97166; 97530; 97535; A4213; A4930; A6258; A6550; C1776; G0378; G0379; J0171; J1100; J1170; J1815; J1885; J2270; J2370; J2405; J2704; J2795; J3010; J3370; J3490

== ENCOUNTER → 2021-06-07 | Outpatient (CLI) | payer OTHER ==
[~2021-06-07] MED LIST changes: -ACETAMINOPHEN 500 MG TABLET PO PRN; -CLINDAMYCIN 900MG PREMIX 50 ML IV PRN; -GABAPENTIN 300 MG CAPSULE. PO PRN; -HYDROmorphone 2 MG/ML VIAL IVP PRN; +MELO7.5T29 PO; -MORPHINE SULFATE 2 MG/ML INJ. IVP PRN; -NS INJ ONE; +OXYC5TAB4 PO; +OXYC5TAB88 PO; -PROCHLORPERAZINE 10 MG/2 ML VIAL. IVP PRN; -TRANEXAMIC ACID INJ ONE; -TV=62ml MORPHINE 5 MG, KETOROLAC 30 MG, ROPIV, EPI INT ART ONE; -fentaNYL PF VIAL 100 MCG/2 ML VIAL IVP PRN
[2021-06-07 15:19] LABS: BASO % 1 % (0-3); EOS # 0.1 x10^3/uL (0.0-0.7); EOS % 2 % (0-3); HEMATOCRIT 40.8 % (39.0-53.0); HEMOGLOBIN 13.9 g/dL (13.0-17.5); LYMPH # 1.7 x10^3/uL (1.0-4.8); LYMPH % 30 % (24-48); MEAN CORPUSCULAR HEMOGLOBIN 28 pg (25-35); MEAN CORPUSCULAR HGB CONC 34 g/dL (31-37); MEAN CORPUSCULAR VOLUME 83 fL (79-100); MONO # 0.4 x10^3/uL (0.0-1.1); MONO % 7 % (0-9); NEUT # 3.4 x10^3/uL (1.8-7.7); NEUT % 61 % (31-73); PLATELET COUNT 179 x10^3/uL (140-400); RED CELL DISTRIBUTION WIDTH 14.7 % (11.5-14.5); WHITE BLOOD COUNT 5.5 x10^3/uL (4.0-11.0)
[2021-06-07 15:42] LABS: ALBUMIN 4.7 g/dL (3.4-5.0); ALBUMIN/GLOBULIN RATIO 1.3 (1.0-1.7); CALCIUM 9.6 mg/dL (8.5-10.1); TOTAL PROTEIN 8.3 g/dL (6.4-8.2)
[2021-06-07 15:43] LABS: GFR 77.6; POTASSIUM 4.3 mmol/L (3.5-5.1); TOTAL BILIRUBIN 0.7 mg/dL (0.2-1.0)
[2021-06-08 00:08] LABS: HEMOGLOBIN A1C 6.9 % (4.8-5.6)
[2021-06-08 05:30] LABS: RHEUMATOID FACTOR <10.0 IU/mL (<14.0)
[2021-06-10 08:16] LABS: ALBUM 4.3 g/dL (2.9-4.4); ALPHA 1 0.2 g/dL (0.0-0.4); ALPHA 2 0.7 g/dL (0.4-1.0); BETA 1.1 g/dL (0.7-1.3); GAMMA 1.2 g/dL (0.4-1.8); PROTEIN TOTAL 7.5 g/dL (6.0-8.5); SPEP AG RATIO 1.3 (0.7-1.7)
== END ==
LOC: LAB 14:50
PROVIDERS: ATTEND Podiatrist Foot & Ankle Surgery
DX: E11.40 Type 2 diabetes mellitus with diabetic neuropathy, unspecified (principal)
CPT/HCPCS: 80053; 82607; 82746; 83036; 84165; 84443; 85025; 85651; 86038; 86431; 86592